=== PATIENT | male | born 1995 | race African-American/Black ===

== ENCOUNTER 2017-09-28 16:54 | Inpatient (IN) | payer OTHER ==
[~2017-09-28] VITALS: Ht 167.6 cm; Wt 73.2 kg
[2017-09-28 17:47] LABS: APPEARANCE CLEAR ((CLEAR)); BILIRUBIN SMALL; BLOOD NEGATIVE; COLOR AMBER ((YELLOW)); GLUCOSE (STRIP) NEGATIVE; KETONES 5; LEUKOCYTES NEGATIVE; NITRITE NEGATIVE; PROTEIN (STRIP) 30; SPECIFIC GRAVITY 1.031 (1.000-1.030); UCUL ADDED? NO
[2017-09-28 18:15] LABS: COCAINE PRESUMPTIVE POSITIVE (150 ng/mL); PHENCYCLIDINE NEGATIVE (25 ng/mL); THC CANNABINOIDS PRESUMPTIVE POSITIVE (50 ng/mL)
[2017-09-28 18:16] LABS: AMPHETAMINE NEGATIVE (500 ng/mL); BARBITURATES NEGATIVE (200 ng/mL); BENZODIAZEPINES NEGATIVE (150 ng/mL); BUPRENORPHINE PRESUMPTIVE POSITIVE (10 ng/mL); METHADONE PRESUMPTIVE POSITIVE (200 ng/mL); METHAMPHETAMINE PRESUMPTIVE POSITIVE (500 ng/mL); OPIATES (MORPHINE) NEGATIVE (100 ng/mL); OXYCODONE NEGATIVE (100 ng/mL); PROPOXYPHENE NEGATIVE (300 ng/mL); TRICYCLIC ANTIDEPRESSANTS NEGATIVE (300 ng/mL)
[2017-09-28 18:17] LABS: HEMATOCRIT 40.8 % (38.0-50.0); HEMOGLOBIN 14.3 G/DL (12.5-16.6); MCH 30.7 PG (29.0-34.0); MCV 87.6 FL (86-99); PLATELET COUNT 306 K/uL (156-360); RBC DIS.WIDTH-CV 13.6 % (11.8-14.6); RBC DIS.WIDTH-SD 43.6 % (39-53); RED BLOOD COUNT 4.66 M/uL (4.00-5.50); WHITE BLOOD COUNT 13.4 K/uL (4.1-10.2)
[2017-09-28 18:29] LABS: ALBUMIN 3.9 g/dL (3.2-4.8); CHLORIDE 104 mEq/L (99-109); POTASSIUM 3.8 mEq/L (3.7-5.4); SODIUM 139 mEq/L (136-147)
[2017-09-28 18:32] LABS: GLUCOSE 111 mg/dL (70-99); TOTAL PROTEIN 6.9 g/dL (6.4-8.3)
[2017-09-28 18:33] LABS: TOTAL BILIRUBIN 0.3 mg/dL (0.0-1.0)
[2017-09-28 18:34] LABS: SERUM ETHYL ALCOHOL < 10 mg/dL
[2017-09-28 18:35] LABS: ALKALINE PHOSPHATASE 53 IU/L (3-129); CREATININE 1.1 mg/dL (0.6-1.3); GFR ESTIMATE (CALCULATED) > 59 mL/min/ (58.99-99999)
[2017-09-28 18:36] LABS: UREA NITROGEN (BUN) 10 mg/dL (9-23)
[2017-09-28 18:37] LABS: AST (GOT) 34 IU/L (2-34)
[2017-09-28 18:38] LABS: ALT (GPT) 29 IU/L (3-49)
[2017-09-28] MEDS ORDERED: SEROQUEL XR300 MG PO (20:43)
[2017-09-28] MEDS ORDERED: CONCERTA54 MG PO (20:44)
[2017-09-28 21:28] VITALS: BP 136/73
[2017-09-28] MEDS ORDERED: SUBOXONE 8 MG-1 EAC2 SL (21:30)
== END 2017-09-28 23:13 | DRG 881 ==
LOC: EME 16:54 → EDOF 19:21 → ENRESERV 20:43 → 1WEST 21:12
PROVIDERS: Emergency Medicine
DX: F32.9 Major depressive disorder, single episode, unspecified (principal); S61.512A Laceration without foreign body of left wrist, initial encounter; S61.511A Laceration without foreign body of right wrist, initial encounter; F17.200 Nicotine dependence, unspecified, uncomplicated; F12.10 Cannabis abuse, uncomplicated; F14.10 Cocaine abuse, uncomplicated; B19.9 Unspecified viral hepatitis without hepatic coma; F11.10 Opioid abuse, uncomplicated; X78.8XXA Intentional self-harm by other sharp object, initial encounter; Y93.89 Activity, other specified; Y92.89 Other specified places as the place of occurrence of the external cause; Z91.14 Patient's other noncompliance with medication regimen; J45.909 Unspecified asthma, uncomplicated; F15.10 Other stimulant abuse, uncomplicated; F60.2 Antisocial personality disorder
CPT/HCPCS: 80053; 81003; 84999; 85027; 99281; 99284; G0480